=== PATIENT | female | born 1955 | race Caucasian/White ===

== ENCOUNTER 2019-05-23 15:02 | Emergency (ER) | payer BC ==
[~2019-05-23] VITALS: Ht 147.3 cm; Wt 92.0 kg
[~2019-05-23 15:02] MED LIST: IBUP-1051 PO
[2019-05-23 15:32] VITALS: BP 149/94
[2019-05-23] MEDS ORDERED: orphenadrine citrate 60mg/2ml inj. IM ONE (16:35)
[2019-05-23] MEDS ORDERED: ketorolac tromethamine 15mg/ml inj. IM ONE (16:35)
[2019-05-23] MEDS ORDERED: METH-360 PO (16:43)
== END 2019-05-23 17:10 | disposition home or self-care (01) ==
LOC: ER 16:19
DX: S40.011A Contusion of right shoulder, initial encounter (principal); Z88.5 Allergy status to narcotic agent; Z79.899 Other long term (current) drug therapy; W06.XXXA Fall from bed, initial encounter; Y93.89 Activity, other specified; Y92.89 Other specified places as the place of occurrence of the external cause; Y99.8 Other external cause status
CPT/HCPCS: 73030; 96372; 99284; J1885; J2360; 99283